=== PATIENT | male | born 1980 | race African-American/Black ===

== ENCOUNTER 2018-05-20 15:00 | Emergency (ER) | payer BC ==
[2018-05-20] MEDS ORDERED: Ondansetron 4 MG/2 ML SDV IVPUSH ONE (15:06)
[2018-05-20] MEDS ORDERED: Sodium Chloride 0.9% 1,000 ML IV ONE (15:06)
[2018-05-20] MEDS ORDERED: Alum Hydrox/Mag Hydrox/Simeth 15 ML, Metoclopramide 5 MG, Lidocaine 2% 5 ML PO ONE ×3 (15:14)
--- NOTE | 2018-05-20 15:14 | EDM.PDOC ---
ED HPI GENERAL MEDICAL PROBLEM - General Chief Complaint: Cardiovascular Problem Stated Complaint: CHEST PAIN Time Seen by Provider: 05/20/18 15:01 Source of Information: Reports: Patient History Limitations: Reports: No Limitations - History of Present Illness INITIAL COMMENTS - FREE TEXT/NARRATIVE: HISTORY AND PHYSICAL: History of present illness: Patient is a 35-year-old male who presents to the emergency room with complaints of chest pain, nausea, vomiting, diarrhea 4 days. He states that he just traveled back from [place] and returned home yesterday. Symptoms started shortly before leaving [place], states "I'm not sure if its the food I ate or what". He states he has had multiple bouts of diarrhea and has noted some blood in his stools today. He states he is able to eat and drink appropriately. Has had nausea and vomitting intermittently over the past 2 days. States he has had some cramps to his legs, believes it was from "sitting so long" while traveling. He denies any fever, chills, rashes, shortness of breath, cough, abdominal pain , dysuria, or constipation. Denies any headache, change in vision, syncope or near syncope. Review of systems: As per history of present illness and below otherwise all systems reviewed and negative. Past medical history: As per history of present illness and as reviewed below otherwise noncontributory. Surgical history: As per history of present illness and as reviewed below otherwise noncontributory. Social history: No reported history of drug or alcohol abuse. Family history: As per history of present illness and as reviewed below otherwise noncontributory. Physical exam: General: Well-developed and well-nourished 37-year-old -Stateless male. Alert and oriented. Nontoxic appearing and in no acute distress. HEENT: Atraumatic, normocephalic, pupils equal and reactive bilaterally, negative for conjunctival pallor or scleral icterus, mucous membranes moist, throat clear, neck supple, nontender, trachea midline. No drooling or trismus noted. No meningeal signs Lungs: Clear to auscultation, breath sounds equal bilaterally, chest nontender. Heart: Tachycardic, S1S2, regular rate and rhythm without overt murmur Abdomen: Soft, nondistended, nontender. Negative for masses or hepatosplenomegaly. Negative for costovertebral tenderness. Pelvis: Stable nontender. Genitourinary: Deferred. Rectal: This was done with a stocklayer at the bedside. Consent was obtained. Good rectal tone. Hemoccult positive with black tarry stool. No external/ internal hemorrhoids noted. Pt tolerated well. Skin: Intact, warm, dry. No lesions or rashes noted. Extremities: Atraumatic, moves all per self, negative for cords or calf pain. Neurovascular unremarkable. Neuro: Awake, alert, oriented. Cranial nerves II through XII unremarkable. Cerebellum unremarkable. Motor and sensory unremarkable throughout. Exam nonfocal. Notes: Physical exam in within normal limits with the exception of the +hemoccult stool. No signs of cellulitis or DVT upon evaluating his "cramps" to his lower extremities. Abdomen is soft and nontender. EKG shows sinus tachycardia, rate 115. VSS. Patient has a Hgb 5.9 (L), troponin of 0.080 (H), Potassium of 3.3 (L), positive H.Pylori and positive hemoccult stool. With his multiple significant findings he does need to go to a higher level of care. Did inform the patient of these findings. He is agreeable to receiving blood products and transfer. 1645: Dr Chávez at [facility] in [place] was consulted on this case. He is agreeable to accepting this patient. Patient will be transferred via ground EMS. Diagnostics: CBC, CMP, UA, stool studies, chest x-ray, EKG, CT abdomen and pelvis, Type and Screen, 2 units RBC Therapeutics: IV fluid, Zofran, Protonix Impression: Elevated Troponin H.Pylori Infection Anemia Plan: Transfer to [place] via ground EMS Definitive disposition and diagnosis as appropriate pending reevaluation and review of above. Duration: Day(s): chest Pain Score (Numeric/FACES): 8 - Related Data Allergies Allergy/AdvReac Type Severity Reaction Status Date / Time No Known Allergies Allergy Verified 05/20/18 15:11 Home Meds: Home Meds . [No Known Home Meds] 05/20/18 [History] ED ROS GENERAL - Review of Systems Review Of Systems: ROS reveals no pertinent complaints other than HPI. ED EXAM, GENERAL - Physical Exam Exam: See Below (See dictation) Course - Vital Signs Last Recorded V/S: Last Vital Signs Temp 98.2 F 05/20/18 15:07 Pulse 105 H 05/20/18 15:07 Resp 16 05/20/18 15:07 BP 148/60 H 05/20/18 15:07 Pulse Ox 100 05/20/18 15:07 - Orders/Labs/Meds Orders: Active Orders 24 hr Category Date Time Status EKG Documentation Completion [RC] STAT Care 05/20/18 15:06 Active Hemoccult [Fecal Occult Blood Collection] [RC] Care 05/20/18 16:18 Active ASDIRECTED Abdomen Pelvis w Cont [CT] Stat Exams 05/20/18 15:06 Taken Chest 1V Frontal [CR] Stat Exams 05/20/18 15:06 Taken CULTURE BLOOD [BC] Stat Lab 05/20/18 15:39 Received CULTURE BLOOD [BC] Stat Lab 05/20/18 16:04 Received CULTURE STOOL + CAMPY+SHIGATOX [RM] Stat Lab 05/20/18 15:06 Ordered RED BLOOD CELLS LP [BBK] Stat Lab 05/20/18 16:04 Received TYPE AND SCREEN [BBK] Stat Lab 05/20/18 16:04 Received UA W/MICROSCOPIC [URIN] Stat Lab 05/20/18 17:00 Received Blood Culture x2 Reflex Set [OM.PC] Stat Oth 05/20/18 15:15 Ordered Transfuse RBC [Transfuse Red Blood Cells] [COMM] Stat Oth 05/20/18 15:52 Ordered Labs: Laboratory Tests 05/20/18 05/20/18 05/20/18 Range/Units 13:25 13:25 13:25 WBC 8.05 (4.0-11.0) K/uL RBC 2.06 L (4.50-5.90) M/uL Hgb 5.9 L (13.0-17.0) g/dL Hct 17.3 L (38.0-50.0) % MCV 84.0 (80.0-98.0) fL MCH 28.6 (27.0-32.0) pg MCHC 34.1 (31.0-37.0) g/dL RDW Std Deviation 41.7 (28.0-62.0) fl RDW Coeff of Ashley 15 (11.0-15.0) % Plt Count 170 (150-400) K/uL MPV 8.40 (7.40-12.00) fL Neut % (Auto) 55.9 (48.0-80.0) % Lymph % (Auto) 37.6 (16.0-40.0) % [place] % (Auto) 4.5 (0.0-15.0) % Eos % (Auto) 1.9 (0.0-7.0) % Baso % (Auto) 0.1 (0.0-1.5) % Neut # (Auto) 4.5 (1.4-5.7) K/uL Lymph # (Auto) 3.0 H (0.6-2.4) K/uL [place] # (Auto) 0.4 (0.0-0.8) K/uL Eos # (Auto) 0.2 (0.0-0.7) K/uL Baso # (Auto) 0.0 (0.0-0.1) K/uL Nucleated RBC % 1.0 /100WBC Nucleated RBCs # 0 K/uL INR Lactate (0.20-2.00) mmol/L Sodium 139 (136-148) mmol/L Potassium 3.3 L (3.5-5.1) mmol/L Chloride 104 (98-107) mmol/L Carbon Dioxide 27.1 (21.0-32.0) mmol/L BUN 19 H (7.0-18.0) mg/dL Creatinine 1.1 (0.8-1.3) mg/dL Est Cr Clr Drug Dosing TNP Estimated GFR (MDRD) > 60.0 ml/min Glucose 121 H (74-106) mg/dL Calcium 8.2 L (8.5-10.1) mg/dL Total Bilirubin 0.1 L (0.2-1.0) mg/dL AST 9 L (15-37) IU/L ALT 18 (14-63) IU/L Alkaline Phosphatase 50 (46-116) U/L Troponin I 0.080 H* (0.000-0.056) ng/mL Total Protein 5.4 L (6.4-8.2) g/dL Albumin 2.9 L (3.4-5.0) g/dL Globulin 2.5 (2.0-3.5) g/dL Albumin/Globulin Ratio 1.2 L (1.3-2.8) H. pylori IgG Antibody POSITIVE H (NEG) 05/20/18 05/20/18 Range/Units 13:25 13:25 WBC (4.0-11.0) K/uL RBC (4.50-5.90) M/uL Hgb (13.0-17.0) g/dL Hct (38.0-50.0) % MCV (80.0-98.0) fL MCH (27.0-32.0) pg MCHC (31.0-37.0) g/dL RDW Std Deviation (28.0-62.0) fl RDW Coeff of Ashley (11.0-15.0) % Plt Count (150-400) K/uL MPV (7.40-12.00) fL Neut % (Auto) (48.0-80.0) % Lymph % (Auto) (16.0-40.0) % [place] % (Auto) (0.0-15.0) % Eos % (Auto) (0.0-7.0) % Baso % (Auto) (0.0-1.5) % Neut # (Auto) (1.4-5.7) K/uL Lymph # (Auto) (0.6-2.4) K/uL [place] # (Auto) (0.0-0.8) K/uL Eos # (Auto) (0.0-0.7) K/uL Baso # (Auto) (0.0-0.1) K/uL Nucleated RBC % /100WBC Nucleated RBCs # K/uL INR 1.01 Lactate 1.6 (0.20-2.00) mmol/L Sodium (136-148) mmol/L Potassium (3.5-5.1) mmol/L Chloride (98-107) mmol/L Carbon Dioxide (21.0-32.0) mmol/L BUN (7.0-18.0) mg/dL Creatinine (0.8-1.3) mg/dL Est Cr Clr Drug Dosing Estimated GFR (MDRD) ml/min Glucose (74-106) mg/dL Calcium (8.5-10.1) mg/dL Total Bilirubin (0.2-1.0) mg/dL AST (15-37) IU/L ALT (14-63) IU/L Alkaline Phosphatase (46-116) U/L Troponin I (0.000-0.056) ng/mL Total Protein (6.4-8.2) g/dL Albumin (3.4-5.0) g/dL Globulin (2.0-3.5) g/dL Albumin/Globulin Ratio (1.3-2.8) H. pylori IgG Antibody (NEG) Meds: Medications Discontinued Medications Generic Name Dose Route Start Last Admin Trade Name Freq PRN Reason Stop Dose Admin Al Hydroxide/Mg Hydroxide 15 0 ml 05/20/18 15:14 05/20/18 16:11 ml/ Metoclopramide HCl 5 mg/ PO 05/20/18 15:15 Not Given Lidocaine HCl 5 ml ONETIME ONE Sodium Chloride 1,000 mls @ 999 mls/hr 05/20/18 15:06 05/20/18 16:01 Normal Saline IV 05/20/18 16:06 999 mls/hr STAT ONE Administration Iopamidol 100 ml 05/20/18 16:48 05/20/18 16:48 Isovue Multipack-370 (76%) IVPUSH 05/20/18 16:49 100 ml ONETIME STA Administration Ondansetron HCl 4 mg 05/20/18 15:06 05/20/18 16:01 Zofran IVPUSH 05/20/18 15:07 4 mg ONETIME ONE Administration Pantoprazole Sodium 80 mg 05/20/18 15:55 05/20/18 16:05 Protonix Iv IVPUSH 05/20/18 15:56 80 mg .BOLUS ONE Administration Departure - Departure Time of Disposition: 17:02 Disposition: DC/Tfer to Acute Hospital 02 Reason for Transfer *Q: Other Condition: Good Clinical Impression: Helicobacter pylori (H. pylori) infection, Elevated troponin Anemia Qualifiers: Anemia type: unspecified type Qualified Code(s): D64.9 - Anemia, unspecified Referrals: PCP,None [Primary Care Provider] - Forms: ED Department Discharge - My Orders Last 24 Hours: My Active Orders 05/20/18 15:06 EKG Documentation Completion [RC] STAT Abdomen Pelvis w Cont [CT] Stat Chest 1V Frontal [CR] Stat CULTURE STOOL + CAMPY+SHIGATOX [RM] Stat 05/20/18 15:15 Blood Culture x2 Reflex Set [OM.PC] Stat 05/20/18 15:39 CULTURE BLOOD [BC] Stat 05/20/18 15:52 Transfuse RBC [Transfuse Red Blood Cells] [COMM] Stat 05/20/18 16:04 CULTURE BLOOD [BC] Stat RED BLOOD CELLS LP [BBK] Stat TYPE AND SCREEN [BBK] Stat 05/20/18 16:18 Hemoccult [Fecal Occult Blood Collection] [RC] ASDIRECTED 05/20/18 17:00 UA W/MICROSCOPIC [URIN] Stat - Assessment/Plan Last 24 Hours: My Active Orders 05/20/18 15:06 EKG Documentation Completion [RC] STAT Abdomen Pelvis w Cont [CT] Stat Chest 1V Frontal [CR] Stat CULTURE STOOL + CAMPY+SHIGATOX [RM] Stat 05/20/18 15:15 Blood Culture x2 Reflex Set [OM.PC] Stat 05/20/18 15:39 CULTURE BLOOD [BC] Stat 05/20/18 15:52 Transfuse RBC [Transfuse Red Blood Cells] [COMM] Stat 05/20/18 16:04 CULTURE BLOOD [BC] Stat RED BLOOD CELLS LP [BBK] Stat TYPE AND SCREEN [BBK] Stat 05/20/18 16:18 Hemoccult [Fecal Occult Blood Collection] [RC] ASDIRECTED 05/20/18 17:00 UA W/MICROSCOPIC [URIN] Stat
[2018-05-20] MEDS ORDERED: Pantoprazole 40 MG Vial IVPUSH ONE (15:55)
[2018-05-20 16:04] LABS: CHLORIDE,CL 104 mmol/L (98-107); SODIUM,NA 139 mmol/L (136-148)
[2018-05-20] MEDS ORDERED: Iopamidol 755 MG/ML 500 ML Multipack Bottle IVPUSH STA (16:48)
--- NOTE | 2018-05-21 11:08 | CT ---
EXAM DATE: 05/20/18 PATIENT'S AGE: 37 Patient: SHAN KHAN Facility: [place], [place] Site . Site : 1980 Study: CT Abdomen/Pelvis w cont [id number] 4:51:33 PM Ordering Physician: Doctor Riggins Final Report: INDICATION: Chest pain. Diarrhea. Black stools traces of blood. Nausea and vomiting TECHNIQUE: CT abdomen and pelvis acquired with IV contrast. 100 cc Isovue 370 COMPARISON: None FINDINGS: Lower chest: Unremarkable. Liver: Unremarkable. Spleen: Unremarkable. Pancreas: Unremarkable. Gallbladder and bile ducts: Unremarkable. Kidneys: Unremarkable. Adrenal glands: Unremarkable. GI tract: Colonic fecal retention. The appendix is the upper limits of normal in diameter 6-7 millimeters but no significant appendiceal wall thickening or periappendiceal fat stranding or fluid. Patient was not noted to have right lower quadrant pain as per referring physician. Vascular structures: Unremarkable. Lymph nodes: Unremarkable. Miscellaneous: Small fat containing umbilical hernia. No free air or significant free fluid. Pelvic Organs: Unremarkable. Bones: Unremarkable for age. IMPRESSION: Diffuse colonic fecal retention. No diffuse or focal bowel wall thickening. Appendix upper limits of normal in size at 6 millimeters but no significant appendiceal wall thickening or periappendiceal fluid or fat stranding. Patient was not noted to have clinical symptoms for appendicitis as per discussion with the referring physician on 05/20/2018 at 5:30 p.m.. Dictated by Sherman Cespedes MD @ 05/20/2018 5:35:41 PM Please note that all CT scans at this facility use dose modulation, iterative reconstruction, and/or weight-based dosing when appropriate to reduce radiation dose to as low as reasonably achievable. Dictated by: Sherman Cespedes MD @ 05/20/2018 17:35:44 (Electronic Signature) Report Signed by Proxy. [facility] HOSPITALRusty
--- NOTE | 2018-05-21 11:09 | CR ---
EXAM DATE: 05/20/18 PATIENT'S AGE: 37 Patient: SHAN KHAN Facility: [place], [place] Site . Site : 1980 Study: XRay Chest [id number] 4:53:11 PM Ordering Physician: Doctor Riggins Final Report: INDICATION: Chest pain TECHNIQUE: Chest radiograph 1 view COMPARISON: 07/06/09 FINDINGS: Mediastinum: The mediastinum is normal in appearance. The heart silhouette is normal in size and morphology. Lung: Mild pulmonary vascular congestion noted. No sign of pleural effusion seen. No pneumothorax is identified. Musculoskeletal: Unremarkable for age. IMPRESSION: 1. Mild pulmonary vascular congestion noted. Dictated by: Jag Flanagan MD @ 05/20/2018 17:24:10 (Electronic Signature) Report Signed by Proxy. [facility]usty
== END 2018-05-20 16:00 ==
LOC: MW.ED 15:00
DX: K92.1 Melena (principal); R19.7 Diarrhea, unspecified; B96.81 Helicobacter pylori [H. pylori] as the cause of diseases classified elsewhere; R79.89 Other specified abnormal findings of blood chemistry; D64.9 Anemia, unspecified
CPT/HCPCS: 36415; 71045; 74177; 80053; 81001; 83605; 84484; 85025; 85610; 86677; 87040; 93005; 96361; 96374; 96375; 99285; C9113; J2405; J7040; P9016; Q9967